=== PATIENT | female | born 1985 | race Two or more races ===

== ENCOUNTER 2021-06-14 23:48 | Emergency (ER) | payer MEDICAID, OTHER ==
[~2021-06-14] VITALS: Ht 162.6 cm; Wt 72.6 kg
[2021-06-15] MEDS ORDERED: KETOROLAC TROMETH 60MG/2ML VIAL IM ONE (00:45)
[2021-06-15] MEDS ORDERED: HYDROcodone-ACET 10/325MG TAB PO ONE (02:15)
[2021-06-15 03:48] VITALS: BP 145/76
== END 2021-06-15 05:00 | disposition home or self-care (01) ==
LOC: ER 23:48
DX: S33.5XXA Sprain of ligaments of lumbar spine, initial encounter (principal); M25.551 Pain in right hip; X58.XXXA Exposure to other specified factors, initial encounter; Y93.89 Activity, other specified; Y92.89 Other specified places as the place of occurrence of the external cause; Y99.8 Other external cause status
CPT/HCPCS: 72131; 72192; 96372; 99284; J1885